=== PATIENT | male | born 1995 ===

== ENCOUNTER 2017-02-17 11:38 | Emergency (ER) | payer OTHER ==
[~2017-02-17] VITALS: Ht 172.7 cm; Wt 96.4 kg
[2017-02-17 12:45] LABS: INFLUENZA TYPE B NEGATIVE FOR TYPE B (NEGATIVE)
[2017-02-17] MEDS ORDERED: IBUPROFEN 800 MG TABLET PO ONE (14:00)
[2017-02-17 14:50] VITALS: BP 125/70
== END 2017-02-17 15:24 | disposition home or self-care (01) ==
LOC: EMS 11:40
DX: J11.1 Influenza due to unidentified influenza virus with other respiratory manifestations (principal); J06.9 Acute upper respiratory infection, unspecified
CPT/HCPCS: 87804; 99284